=== PATIENT | female | born 1945 | race Caucasian/White ===

== ENCOUNTER 2021-12-31 12:00 | Outpatient (RCR) | payer MEDICARE, OTHER, SELFPAY | END 2022-09-26 23:59 | disposition home or self-care (01) | PROVIDERS: PCP Family Medicine; Visit Provider Family Medicine | DX: M48.062 Spinal stenosis, lumbar region with neurogenic claudication (principal); Z51.89 Encounter for other specified aftercare | CPT/HCPCS: 97110; 97116; 97162 ==

== ENCOUNTER 2022-08-20 10:15 | Outpatient (RCR) | payer MEDICARE, OTHER, SELFPAY | END 2022-12-18 23:59 | disposition home or self-care (01) | PROVIDERS: PCP Family Medicine; Visit Provider Physician Assistant | DX: M48.062 Spinal stenosis, lumbar region with neurogenic claudication (principal); M54.50 Low back pain, unspecified; M79.604 Pain in right leg; Z51.89 Encounter for other specified aftercare | CPT/HCPCS: 97110; 97116; 97163 ==

== ENCOUNTER 2023-06-17 14:47 | Outpatient (CLI) | payer MEDICARE, OTHER, SELFPAY | END 2023-06-17 14:48 | disposition home or self-care (01) | LOC: INJ CL 14:49 | PROVIDERS: PCP Family Medicine; Visit Provider Family Medicine | DX: M17.11 Unilateral primary osteoarthritis, right knee (principal); M25.561 Pain in right knee | CPT/HCPCS: 64454 ==

== ENCOUNTER 2023-06-24 12:12 | Outpatient (CLI) | payer MEDICARE, OTHER, SELFPAY | END 2023-06-24 12:13 | disposition home or self-care (01) | LOC: INJ CL 12:14 | PROVIDERS: Visit Provider Family Medicine | DX: M17.11 Unilateral primary osteoarthritis, right knee (principal); M25.561 Pain in right knee; G89.29 Other chronic pain | CPT/HCPCS: 64624; J2250; J3010 ==

== ENCOUNTER 2023-10-14 08:24 | Outpatient (CLI) | payer MEDICARE, OTHER, SELFPAY | END 2023-10-14 08:25 | disposition home or self-care (01) | LOC: INJ CL 08:25 | PROVIDERS: Visit Provider Family Medicine | DX: M54.16 Radiculopathy, lumbar region (principal); M51.36 Other intervertebral disc degeneration, lumbar region | CPT/HCPCS: 64483; J1100; Q9966 ==

== ENCOUNTER 2023-10-21 14:00 | Outpatient (RCR) | payer MEDICARE, OTHER, SELFPAY | END 2024-02-18 23:59 | disposition home or self-care (01) | PROVIDERS: Visit Provider Physician Assistant | DX: M48.062 Spinal stenosis, lumbar region with neurogenic claudication (principal); M54.16 Radiculopathy, lumbar region; Z51.89 Encounter for other specified aftercare | CPT/HCPCS: 97110; 97140; 97162 ==

== ENCOUNTER 2024-09-24 14:00 | Outpatient (RCR) | payer MEDICARE, OTHER, SELFPAY | END 2025-01-22 23:59 | disposition home or self-care (01) | PROVIDERS: PCP Physician Assistant; Visit Provider Orthopaedic Surgery Orthopaedic Surgery of the Spine | DX: Z51.89 Encounter for other specified aftercare (principal); Z98.890 Other specified postprocedural states; Z98.1 Arthrodesis status; M54.50 Low back pain, unspecified | CPT/HCPCS: 97110; 97140; 97162 ==

== ENCOUNTER 2024-11-01 10:37 | Outpatient (RCR) | payer MEDICARE, OTHER, SELFPAY | END 2025-03-01 23:59 | disposition home or self-care (01) | PROVIDERS: PCP Physician Assistant; Visit Provider Physician Assistant | DX: N32.81 Overactive bladder (principal); Z51.89 Encounter for other specified aftercare ==